=== PATIENT | female | born 1990 | race Two or more races ===

== ENCOUNTER 2017-09-07 16:36 | Emergency (ER) | payer MEDICAID ==
[~2017-09-07] VITALS: Ht 165.1 cm; Wt 131.3 kg
[2017-09-07 16:38] VITALS: BP 108/71
[2017-09-07] MEDS ORDERED: IBUPROFEN 200 MG TABLET ONE (17:28)
[2017-09-07] MEDS ORDERED: DIPH,PERTUSS(ACELL),TET VAC/PF 0.5 ML IM-VACC ONE ×2 (18:00→18:04)
[2017-09-07] MEDS ORDERED: IBUPROFEN 200 MG TABLET PO ONE (18:00)
== END 2017-09-07 18:24 | disposition home or self-care (01) ==
LOC: ED 18:00
DX: S61.012A Laceration without foreign body of left thumb without damage to nail, initial encounter (principal); W26.0XXA Contact with knife, initial encounter; Y93.89 Activity, other specified; Y92.098 Other place in other non-institutional residence as the place of occurrence of the external cause; Y99.8 Other external cause status
CPT/HCPCS: 90471; 90715